=== PATIENT | female | born 1970 | race Asian ===

== ENCOUNTER 2016-11-17 12:14 | Emergency (ER) | payer OTHER ==
[~2016-11-17] VITALS: Ht 154.9 cm; Wt 60.0 kg
[2016-11-17 12:18] VITALS: BP 149/91; PULSE 52; RESP 16; TEMP 97.8; O2SAT 100
[2016-11-17] MEDS ORDERED: LEXA10TA PO (12:22)
--- NOTE | 2016-11-17 12:42 | PD ---
HPI . head and neck injury while surfing Chief Complaint: Musculoskeletal Complaint Time Seen by Provider: 12:35 Travel History International Travel<30 days: No Contact w/Intl Traveler<30days: No Traveled to known affect area: No History of Present Illness HPI 46-year-old female with history of depression on Lexapro here with complaints of neck pain while surfing. Patient was taking surfing lessons and had some choppy waves. She somehow lost balance and kind of went over the surfboard and hit her head in shallow [place]. She says she felt some popping. She is here complaining of 6/10 pain located on the right back side of the neck. She does not have any C-spine tenderness. She did not have any loss of consciousness or confusion. She is alert and awake, her responses are normal. She denies any headache, weakness, fatigue or vision changes. She denies any numbness or tingling. Her main complaint is the pain on the right side of the neck. She says it does sometimes shoot into her back, but she does have prior back injuries that she sees a chiropractor for. PFSH Past Medical History Anxiety: Yes Depression: Yes Diminished Hearing: No Tetanus Vaccination: Unknown Influenza Vaccination: Yes ?: Not Social History Alcohol Use: Yes (OCC) Tobacco Use: No Substance Use: No Allergies-Medications (Allergen,Severity, Reaction): Coded Allergies: No Known Allergies (Unverified , 11/17/16) Reported Meds & Prescriptions Reported Meds & Active Scripts Active Robaxin (Methocarbamol) 500 Mg Tab 500 Mg PO BID Reported Lexapro (Escitalopram Oxalate) 10 Mg Tab 10 Mg PO DAILY Review of Systems General / Constitutional: No: Fever Eyes: No: Visual changes HENT: No: Headaches Cardiovascular: No: Chest Pain or Discomfort Respiratory: No: Shortness of Breath Gastrointestinal: No: Abdominal Pain Genitourinary: No: Dysuria Musculoskeletal: Positive: Pain (neck pain) Skin: No Rash Neurologic: No: Weakness Psychiatric: No: Depression Endocrine: No: Polydipsia Hematologic/Lymphatic: No: Easy Bruising Physical Exam Narrative GENERAL: AAO x 3, no acute distress, Well-nourished, well-developed patient. c collar in place, comfortable, laughing and talking to friend SKIN: Warm and dry. No visible rashes or bruising. HEAD: Normocephalic and atraumatic. NO lacerations, abrasions, or ecchymosis. EYES: No scleral icterus. No injection or drainage. EOM intact, PERRLA ENT: No nasal drainage noted. Mucous membranes pink. Airway patent. TM normal bilaterally. NECK: Supple, trachea midline. No JVD. tenderness to trapezius along the right side. No c spine tenderness. ROM is normal. Flexion and extension normal . Some tenderness to trapezius when rotating to left side. CARDIOVASCULAR: Regular rate and rhythm without murmurs, gallops, or rubs. RESPIRATORY: Breath sounds equal bilaterally. No accessory muscle use. No rhonchi or rales. GASTROINTESTINAL: Abdomen soft, non-tender, nondistended. EXTREMITIES: No cyanosis or edema. BACK: Nontender without obvious deformity. No CVA tenderness. PSYCH: AAO x 3, normal affect. Data Data Last Documented VS Vital Signs Date Time Temp Pulse Resp B/P Pulse Ox O2 Delivery O2 Flow Rate FiO2 11/17/16 12:18 97.8 52 16 149/91 100 Orders Cyclobenzaprine (Flexeril) (11/17/16 12:45) [facility] Medical Decision Making Medical Screen Exam Complete: Yes Emergency Medical Condition: Yes Medical Record Reviewed: Yes (none on file) Differential Diagnosis muscle strain, less likely c spine injury, less likely brain injury Narrative Course 46-year-old female with history of depression on ImpactRxapro here with complaints of neck pain while surfing. Patient was taking surfing lessons and had some choppy waves. She somehow lost balance and kind of went over the surfboard and hit her head in shallow [place]. She says she felt some popping. She is here complaining of 6/10 pain located on the right back side of the neck. She does not have any C-spine tenderness. She did not have any loss of consciousness or confusion. She is alert and awake, her responses are normal. She denies any headache, weakness, fatigue or vision changes. She denies any numbness or tingling. Her main complaint is the pain on the right side of the neck. She says it does sometimes shoot into her back, but she does have prior back injuries that she sees a chiropractor for. Patient seen and examined. She is comfortable and in no distress. Examination is unremarkable except for some tenderness along the trapezius on the right side. She does not meet criteria for imaging of the neck or brain according to [facility] and [place] CT rules. I have provided her with oral Flexeril here in the ED for pain relief. I recommend discharge home with muscle relaxers. She can use ice and heat for symptomatically relief. She will need follow-up with primary care provider. I advised her if any of her symptoms change or worsen, that she needs to go to the nearest emergency department. We discussed changes in neuro status. I explained this to her and her friend. Ok to remove C collar Patient verbalized understanding of instructions, questions were answered, and thanked me for their care. I advised them if their condition worsens, please return to the nearest emergency room for further care. Diagnosis Primary Impression: Neck muscle strain Qualified Code: S16.1XXA - Neck muscle strain, initial encounter Patient Instructions: General Instructions Additional Instructions: Please return to emergency department if your symptoms return or worsen. Follow up with your primary care provider. Take medications as prescribed. Rest the affected area as much as possible. Ice this area for 15-20 minutes at a time. You can do this every hour or as much as tolerated. You can also try heat to this area. Be careful not to burn yourself. Use ibuprofen as needed for pain and inflammation. Look out for any changes in mental status and return to Emergency department if any changes occur. Med/Other Pt SpecificInfo: Prescription(s) given Scripts Methocarbamol (Robaxin)500 Mg [id number] Mg PO BID #20 TAB Ref 0 Prov:Betito Alfaro MD 11/17/16 Disposition: 01 DISCHARGE HOME Condition: Stable Bridget Albarran Nov 17, 2016 12:42
[2016-11-17] MEDS ORDERED: CYCLOBENZAPRINE HCL 10 MG TAB PO ONE (12:45)
[2016-11-17] MEDS ORDERED: ROBA500T PO (12:52)
== END 2016-11-17 13:15 | disposition home or self-care (01) ==
LOC: PHEFT 12:14
DX: S16.1XXA Strain of muscle, fascia and tendon at neck level, initial encounter (principal); V92.08XA Drowning and submersion due to fall off other unpowered watercraft, initial encounter; Y93.18 Activity, surfing, windsurfing and boogie boarding; Y92.832 Beach as the place of occurrence of the external cause; Y99.8 Other external cause status
CPT/HCPCS: 99283